=== PATIENT | female | born 1990 | race Caucasian/White ===

== ENCOUNTER → 2017-05-30 | Outpatient (CLI) | payer BC ==
[~2017-05-30] MED LIST: ACETAMINOPHEN-1 EAC1 PO; CLEOCIN HCL150 MG PO; PROZAC40 MG PO; XANAX 0.5 MG0.5 MG PO
== END ==
LOC: M.ULTRA 13:00
DX: N64.52 Nipple discharge (principal)

== ENCOUNTER 2017-06-25 16:06 | Emergency (ER) | payer BC, OTHER ==
[~2017-06-25] VITALS: Ht 160 cm; Wt 68.0 kg
[2017-06-25] MEDS ORDERED: PROZAC40 MG PO (16:20)
[2017-06-25] MEDS ORDERED: XANAX 0.5 MG0.5 MG PO (16:20)
[2017-06-25] MEDS ORDERED: CLEOCIN HCL150 MG PO (16:36)
[2017-06-25] MEDS ORDERED: ACETAMINOPHEN-1 EAC1 PO (16:36)
[2017-06-25 16:58] VITALS: BP 110/62
== END 2017-06-25 16:58 | disposition home or self-care (01) ==
LOC: M.ERS 16:06
DX: K02.9 Dental caries, unspecified (principal); E03.9 Hypothyroidism, unspecified; F41.9 Anxiety disorder, unspecified; F17.200 Nicotine dependence, unspecified, uncomplicated; Z90.89 Acquired absence of other organs; Z88.6 Allergy status to analgesic agent; Z88.5 Allergy status to narcotic agent; Z88.0 Allergy status to penicillin

== ENCOUNTER → 2018-03-14 | Outpatient (CLI) | payer BC | LOC: M.ULTRA 02-27 08:00 | DX: R10.11 Right upper quadrant pain (principal); Z88.0 Allergy status to penicillin ==